=== PATIENT | female | born 1995 | race Caucasian/White ===

== ENCOUNTER 2023-04-22 13:11 | Emergency (ER) | payer OTHER, SELFPAY ==
[2023-04-22 13:12] VITALS: BP 144/90
--- NOTE | 2023-04-22 13:51 | ED.SKININJ ---
HPI-Injury
General
Chief Complaint: Bite
Time Seen by Provider: 04/22/23 13:32
Travel History
Have you had any contact with someone who has COVID-19?: No
Do you have any symptoms of coronavirus? Fever > 100 degrees, chills, cough, shortness of breath, sore throat, loss of taste or smell, muscle aches, or headache?: No
History of Present Illness-Injury
Initial Injury comments:
27-year-old healthy female presents for evaluation of a bite wound to the right middle finger. Was bitten by a stray cat last night. Whereabouts of the cat are unknown.
Review of Systems
Review of Systems
Allergies reviewed?: Yes
All Other Systems: ROS reviewed and negative except as documented in HPI and ROS
Phy Exam
Physical Exam
Physical Exam:
GEN: Well appearing, NAD, WDWN
HEENT: Oral mucosa moist, no scleral icterus
Cardiac: Regular rate
Lung: No respiratory distress, no tachypnea
MSK: No gross deformity or injuries
Skin: Good color, no pallor or jaundice, no rashes. Small puncture wound to the finger pad of the right middle finger, no redness or swelling
Neuro: AO x3, moves all extremities freely
Psych: Calm, cooperative
Course
Orders/Labs/Results
Orders:
Orders
04/22/23 14:00
Rabies Immune Globulin/Pf [HyperRAB] 1,318 unit IM NOW STA
04/22/23 14:15
Rabies Vaccine (Pcec)/Pf [Rabavert Rabies Vacc W-Diluent] 2.5 unit IM .ONCE ONE
Vital Signs
Initial and Last Documented VS:
Initial Vital Signs
Temp Pulse Resp BP Pulse Ox
98.7 F 89 16 144/90 98
04/22/23 13:12 04/22/23 13:12 04/22/23 13:12 04/22/23 13:12 04/22/23 13:12
Last Documented Vital Signs
Temp Pulse Resp BP Pulse Ox
98.7 F 78 16 132/80 98
04/22/23 13:12 04/22/23 14:44 04/22/23 13:12 04/22/23 14:44 04/22/23 13:12
MDM/Problems Addressed
MDM/Problems Addressed:
Given that this is a stray cat and the whereabouts are unknown patient is appropriate for rabies postexposure prophylaxis. Will provide short course of prophylactic antibiotics
*Critical Care Note
Total Time (30-74mins, 75-104mins- exclusive of procedures): Not Applicable
ED Attending Note
-
Portions of this chart may have been created with voice recognition software.� Occasional wrong word or��sound alike� substitutions may have occurred due to the inherent limitations of voice recognition software.
Discharge Plan
Departure
Patient Disposition: Home (Routine Discharge)
Date of Disposition: 04/22/23
Time of Disposition: 13:51
Patient with high blood pressure during this ER visit?: Yes
Discharge Problem:
Open wound of right middle finger due to cat bite
Instructions: Animal Bites (DC)
Prescriptions:
New
amoxicillin-pot clavulanate 875-125 mg tablet
1 tab PO BID 3 Days Qty: 6 0RF
rabies vacc,human diploid (PF) 2.5 unit recon soln
1 ml IM ONCE Qty: 3 0RF
Rx Instructions:
Administer IM on 04/25, 04/29, 05/06
Referrals:
Maggie Heaton MD [Family Provider] -
Stand Alone Forms: Rabies Vaccine Post Exp Dosing
Interventions
Interventions:
*Risk Screen - Suicide Last Done: 04/22/23 14:44
*General Assessment Last Done: 04/22/23 13:12
*ED COVID-19 Vaccine History Last Done: 04/22/23 13:12
*Nursing Disposition Last Done: 04/22/23 14:44
ED-Skin Assessment Last Done: 04/22/23 14:03
Discharge Date and Time
Discharge Date/Time: 04/22/23 14:45
[2023-04-22 14:03] VITALS: BP 132/80
[2023-04-22] MEDS: RABAVERT RABIES VACC W-DILUENT 2.5 UNIT IM (14:33)
[2023-04-22] MEDS: HyperRAB 1318 UNIT IM (14:33)
[2023-04-22 14:44] VITALS: BP 132/80
== END 2023-04-22 14:45 | disposition home or self-care (01) ==
LOC: EMR 13:11
PROVIDERS: EMERGENCY PHYSICIAN Emergency Medicine; FAMILY PHYSICIAN Internal Medicine
DX: S61.252A Open bite of right middle finger without damage to nail, initial encounter (principal); W55.01XA Bitten by cat, initial encounter; Z23 Encounter for immunization
CPT/HCPCS: 99282; 90471; 96372; 90375; 90675

== ENCOUNTER 2023-05-07 13:33 | Outpatient (RCR) | payer OTHER, SELFPAY ==
[2023-04-25 15:01] VITALS: BP 121/81
[2023-04-25] MEDS: RABAVERT RABIES VACC W-DILUENT 2.5 UNIT IM (15:19)
[2023-04-30 15:01] VITALS: BP 124/73
[2023-04-30] MEDS: RABAVERT RABIES VACC W-DILUENT 2.5 UNIT IM (15:09)
[2023-05-07 13:37] VITALS: BP 117/63
[2023-05-07] MEDS: RABAVERT RABIES VACC W-DILUENT 2.5 UNIT IM (13:42)
== END 2023-05-08 08:07 | disposition home or self-care (01) ==
LOC: OID 13:33
PROVIDERS: ATTENDING PHYSICIAN Physician Assistant; FAMILY PHYSICIAN Internal Medicine
DX: Z20.3 Contact with and (suspected) exposure to rabies (principal); Z23 Encounter for immunization
CPT/HCPCS: 90471; 90675